=== PATIENT | female | born 1945 | race Hispanic/Latino ===

== ENCOUNTER 2018-06-19 07:43 | Observation (INO) | payer MEDICARE ==
[2018-06-19] MEDS ORDERED: ECOTRIN PO ONE (08:30)
[2018-06-19] MEDS ORDERED: NACL 0.9% 500 ML 500 ML IV SCH (09:00)
[2018-06-19 09:08] LABS: Basophils % (Auto) 0.6 % (0.0-1.8); Eosinophils # (Auto) 0.1 K/mm3 (0.0-0.4); Hematocrit 36.1 % (30.3-42.9); Hemoglobin 11.9 gm/dl (10.1-14.3); Lymphocytes # (Auto) 0.8 K/mm3 (1.2-5.4); Lymphocytes % (Auto) 15.5 % (13.4-35.0); Mean Corpuscular HGB Conc 33 % (30-34); Mean Corpuscular Volume 81 fl (79-97); Monocytes # (Auto) 0.4 K/mm3 (0.0-0.8); Monocytes % (Auto) 7.9 % (0.0-7.3); Platelet Count 265 K/mm3 (140-440); Red Blood Count 4.45 M/mm3 (3.65-5.03); Red Cell Distribution Width 15.4 % (13.2-15.2)
[2018-06-19 09:20] LABS: Partial Thromboplastin Time 28.3 Sec. (24.2-36.6)
[2018-06-19 09:41] LABS: BUN/Creatinine Ratio 17; Blood Urea Nitrogen 12 mg/dL (7-17); Calcium 9.1 mg/dL (8.4-10.2); Hemolysis Index 19
[2018-06-19] MEDS ORDERED: HEPARIN/NS 5000 UNIT/500ML(CATH LAB) 1,000 ML IR ONE (10:20)
[2018-06-19] MEDS ORDERED: XYLOCAINE 2% INFILTRATI ONE (10:20)
[2018-06-19] MEDS ORDERED: CALAN ONE (10:20)
[2018-06-19] MEDS ORDERED: SUBLIMAZE ONE (10:21)
[2018-06-19] MEDS ORDERED: NITROGLYCERIN SYRINGE 3 ML ONE (10:21)
[2018-06-19 10:26] LABS: INR 0.9 (0.87-1.13)
[2018-06-19] MEDS ORDERED: ZOFRAN ONE (10:31)
[2018-06-19] MEDS: VERSED ONE ×2 (10:57→11:10)
[2018-06-19] MEDS ORDERED: BENADRYL IV ONE (11:00)
[2018-06-19] MEDS ORDERED: SOLU-Medrol IV ONE (11:00)
[2018-06-19] MEDS: HEPARIN 10,000 UNITS/10 ML ONE ×3 (11:01→11:30)
[2018-06-19] MEDS ORDERED: NACL 0.9% 500 ML 500 ML ONE ×2 (11:15)
[2018-06-19] MEDS ORDERED: ALUM-MAG HYDROX-SIMETH 200-200-20MG/5ML ONE (11:36)
[2018-06-19] MEDS ORDERED: EFFIENT PO ONE (11:36)
--- NOTE | 2018-06-19 12:56 | Cardiac Catherization Report ---
CARDIAC CATHETERIZATION REFERRING PHYSICIAN: Elbert Farrell MD INDICATION FOR PROCEDURE: The patient with dyspnea on exertion, likely anginal equivalent, abnormal stress test with apical ischemia on beta blockade, referred for left heart catheterization. Risks, benefits, and potential alternatives explained at length prior to obtaining informed consent. PROCEDURE IN DETAIL: The patient was brought to catheterization lab in a postabsorptive state, prepped and draped in sterile fashion. Rey's test in right hand was normal. A 2 mL of 2% lidocaine used to anesthetize the right wrist. A standard 6-Chinese hydrophilic sheath used to cannulate the right common femoral artery via modified Seldinger technique. All exchanges performed to exchange a J-tip guidewire. JL3.5 catheter used to engage the left main. No dampening or ventricularization. Angiography performed in all projections. JR4 catheter was used to cross the aortic valve under fluoroscopic guidance. Left ventriculography performed 30 HAHN and 30 ARABIC projections via hand injections, catheter flushed. Manual pullback performed with continuous pressure monitoring. Catheter used to engage the right coronary. No dampening or ventricularization. Cineangiography performed in all projections. DATA: Aortic pressure is 140/50, LV pressure is 140. LVEP of 6 mmHg. Left ventriculography reveals normal systolic performance with estimated ejection fraction of 55-60%. No evidence of aortic stenosis. CORONARY ANATOMY: Right dominant system. Right coronary is a moderate sized vessel, courses AV groove, distally bifurcates in the posterior and posterolateral branches. No discrete stenosis noted, 25% mid right coronary stenosis, nonobstructive. Left main without significant disease, bifurcates left anterior descending and left circumflex. Left circumflex is a moderate size vessel, courses AV groove. No significant disease. LAD is a moderate sized vessel, courses anterior intergroove, wraps around the apex. There is a calcific complex lesion in the high mid LAD with a maximal narrowing of approximately 80%. This does correlate with abnormal stress test. At this point, we turned our attention to further interrogate this vessel. Additional heparin given. Abnormal ACT is confirmed. EBU 3.5 guide used. Pressure wire placed into the distal LAD. IFR is 0.84, which deems this lesion physiologically significant. Also, correlates with nuclear stress test. At this point, we direct stented with Dylan 3.0 x 22 drug-eluting stent with 12 KOBI for 30 seconds. Excellent final angiographic result. Next, intravascular ultrasound was performed and multiple passes were made, which revealed a well-opposed and well expanded stent. No complications. Final angiogram reveals excellent result, RALF 3 flow. No chest pain. The patient is clinically stable. I directly supervised the administration of moderate sedation from 10:30-11:15 a.m. CONCLUSIONS: 1. Severe single vessel coronary artery disease with 80-90% high mid LAD stenosis. Likely culprit, positive FFR, deems this lesion physiologically significant. Successful IVUS guided PCI placement of drug-eluting stent. 2. [place] 3.0 x 22 with excellent final angiographic and ultrasonographic results. No other significant obstructive disease identified. 3. Preserved left ventricular systolic performance, estimated ejection fraction of 55-60%. 4. No evidence of aortic stenosis. The patient is clinically stable, chest pain free. Aspirin, Effient, statin therapy. Results of procedure explained to the patient and her sister, standard radial care. JOB# [id number] SBM/NTS
--- NOTE | 2018-06-19 15:06 | Short Stay Summary ---
<ARVIN RAMIREZ - Last Filed: 06/19/18 15:07> Short Stay Documentation Date of service: 06/19/18 - History H&P: obtained from office - Allergies and Medications Current Medications: Allergies azithromycin [From Zithromax] Allergy (Unverified 06/19/18 07:45) Hives Proton Pump Inhibitors Allergy (Unverified 06/19/18 07:46) Nausea shellfish derived Allergy (Unverified 06/19/18 07:46) HOSPITALIZED Home Medications Medication Instructions Recorded Confirmed Last Taken Type Metoprolol [Lopressor TAB] 12.5 mg PO BID 06/19/18 06/19/18 Unknown History Active Medications Sodium Chloride (Nacl 0.9% 500 Ml) 500 mls @ 50 mls/hr IV DIRECT SUDHA Stop: 06/19/18 18:59 Last Admin: 06/19/18 09:29 Dose: 50 mls/hr Documented by: Prasugrel (Effient) 10 mg PO QDAY SUDHA - Brief post op/procedure progress note Date of procedure: 06/19/18 Pre-op diagnosis: abnormal stress test Post-op diagnosis: other (CAD) Procedure: [facility] with PCI - see dictated cath report Anesthesia: local Estimated blood loss: none Condition: stable - Disposition Condition at discharge: Good Disposition: [id number] TO HOME OR SELFCARE - Discharge Diagnoses (1) CAD (coronary artery disease) Status: Chronic (2) Stented coronary artery Status: Chronic Short Stay Discharge Plan Activity: advance as tolerated Diet: low fat, low cholesterol, low salt Wound: open to air, keep clean and dry, per your surgeon's advice Follow up with: INNA CARTAGENA MD [Primary Care Provider] - 7 Days RAYSHAWN COOPER MD [Staff Physician] - 7 Days ([place] office, 07/02/2018 @ 3:15PM) Prescriptions: AtorvaSTATin [Lipitor] 40 mg PO QHS #30 tablet Prasugrel [Effient] 10 mg PO QDAY #30 tablet <GHAZAL URIBE - Last Filed: 06/20/18 11:09> Short Stay Documentation - Allergies and Medications Current Medications: Allergies azithromycin [From Zithromax] Allergy (Unverified 06/19/18 07:45) Hives Proton Pump Inhibitors Allergy (Unverified 06/19/18 07:46) Nausea shellfish derived Allergy (Unverified 06/19/18 07:46) HOSPITALIZED Home Medications Medication Instructions Recorded Confirmed Last Taken Type Aspirin [Aspirin TAB] 325 mg PO QDAY tablet 06/19/18 Unknown Rx AtorvaSTATin [Lipitor] 40 mg PO QHS #30 tablet 06/19/18 Unknown Rx Metoprolol [Lopressor TAB] 12.5 mg PO BID 06/19/18 06/19/18 Unknown History Prasugrel [Effient] 10 mg PO QDAY #30 tablet 06/19/18 Unknown Rx Active Medications Al Hydrox/Mg Hydrox/Simethicone (Alum-Mag Hydrox-Simeth [phone]/5ml) 30 ml PO Q4H PRN PRN Reason: Indigestion Last Admin: 06/20/18 01:26 Dose: 30 ml Documented by: Aspirin (Aspirin) 325 mg PO QDAY [facility] Last Admin: 06/20/18 09:20 Dose: 325 mg Documented by: Atorvastatin Calcium (Lipitor) 40 mg PO QHS [facility] Last Admin: 06/19/18 21:03 Dose: 40 mg Documented by: Metoprolol Tartrate (Lopressor) 12.5 mg PO BID [facility] Last Admin: 06/20/18 09:20 Dose: 12.5 mg Documented by: Prasugrel (Effient) 10 mg PO QDAY [facility] Last Admin: 06/20/18 09:20 Dose: 10 mg Documented by:
[2018-06-19] MEDS ORDERED: ALUM-MAG HYDROX-SIMETH 200-200-20MG/5ML PO PRN (20:45)
[2018-06-19] MEDS: LOPRESSOR PO SCH (21:03)
[2018-06-20] MEDS ORDERED: ALUM-MAG HYDROX-SIMETH 200-200-20MG/5ML PO PRN (01:11)
[2018-06-20 08:29] LABS: Basophils % (Auto) 0.2 % (0.0-1.8); Eosinophils % (Auto) 0.1 % (0.0-4.3); Hematocrit 34.8 % (30.3-42.9); Hemoglobin 11.4 gm/dl (10.1-14.3); Lymphocytes # (Auto) 1.2 K/mm3 (1.2-5.4); Lymphocytes % (Auto) 12.9 % (13.4-35.0); Mean Corpuscular HGB Conc 33 % (30-34); Mean Corpuscular Volume 82 fl (79-97); Monocytes # (Auto) 0.8 K/mm3 (0.0-0.8); Monocytes % (Auto) 8.5 % (0.0-7.3); Platelet Count 284 K/mm3 (140-440); Red Blood Count 4.26 M/mm3 (3.65-5.03); Red Cell Distribution Width 15.4 % (13.2-15.2)
[2018-06-20 08:41] LABS: BUN/Creatinine Ratio 17; Blood Urea Nitrogen 10 mg/dL (7-17); Calcium 8.7 mg/dL (8.4-10.2); Creatine Kinase MB 2.1 ng/mL (0.0-4.0); Hemolysis Index 2
[2018-06-20 09:04] VITALS: BP 137/52
[2018-06-20] MEDS: LOPRESSOR PO SCH (09:20)
[2018-06-20] MEDS ORDERED: EFFIENT PO SCH (10:00)
[2018-06-20] MEDS ORDERED: ASPIRIN PO SCH (10:00)
--- NOTE | 2018-06-20 10:17 | XRay Report ---
PROCEDURE: XR CHEST 1V AP TECHNIQUE: Chest radiograph single view. HISTORY: post pci COMPARISONS: None . FINDINGS: Heart: Normal. Mediastinum/Vessels: Normal. Lungs/Pleural space: Normal. Bony thorax: No acute osseous abnormality. Life support devices: None. IMPRESSION: No acute cardiopulmonary abnormality. This document is electronically signed by Sami Linares MD., June 20 2018 10:15:41 AM ET
--- NOTE | 2018-06-20 11:19 | Progress Note ---
Assessment and Plan s/p PCI of LAD,no cimplaints,labs (cbc,BMP,cardiac enzymes are unremarkable). Patient will take ASA.prasugrel,atorvastatin,f/u with in 2 weeks. patient is agreeable with plan. Subjective Date of service: 06/20/18 Interval history: No chest pain,comfortable. Objective Vital Signs Temp Pulse Resp BP Pulse Ox 06/20/18 09:20 72 137/52 06/20/18 09:02 70 137/52 96 06/20/18 06:00 71 06/20/18 04:21 98.0 F 65 18 132/61 95 06/20/18 00:04 98 06/19/18 23:54 98.0 F 66 18 136/74 93 06/19/18 22:22 93 H 06/19/18 21:03 89 138/61 06/19/18 15:52 98.3 F 77 16 145/66 06/19/18 14:22 85 06/19/18 14:00 85 20 125/70 96 06/19/18 13:30 84 24 139/61 95 06/19/18 13:00 79 21 150/72 94 06/19/18 12:30 74 18 140/71 90 06/19/18 12:15 68 18 139/72 90 06/19/18 12:00 70 14 139/63 95 06/19/18 11:45 97.6 F 77 14 149/77 95 - Physical Examination HEENT: Positive: PERRL Neck: Positive: trachea midline Cardiac: Positive: Regular Rhythm Lungs: Positive: clear to auscultation Neuro: Positive: Grossly Intact Abdomen: Positive: Unremarkable Skin: Positive: Clear Incision: Cardiac Cath Site (right radial cath site is unremarkable.) Extremities: Present: normal - Labs and Meds Cardiac Enzymes 06/20/18 Range/Units 07:20 CK-MB (CK-2) 2.1 (0.0-4.0) ng/mL CBC 06/20/18 Range/Units 07:20 WBC 8.9 (4.5-11.0) K/mm3 RBC 4.26 (3.65-5.03) M/mm3 Hgb 11.4 (10.1-14.3) gm/dl Hct 34.8 (30.3-42.9) % Plt Count 284 (140-440) K/mm3 Lymph # 1.2 (1.2-5.4) K/mm3 [place] # 0.8 (0.0-0.8) K/mm3 Eos # 0.0 (0.0-0.4) K/mm3 Baso # 0.0 (0.0-0.1) K/mm3 Comprehensive Metabolic Panel 06/20/18 Range/Units 07:20 Sodium 140 (137-145) mmol/L Potassium 3.9 (3.6-5.0) mmol/L Chloride 107.3 H (98-107) mmol/L Carbon Dioxide 22 (22-30) mmol/L BUN 10 (7-17) mg/dL Creatinine 0.6 L (0.7-1.2) mg/dL Glucose 97 (65-100) mg/dL Calcium 8.7 (8.4-10.2) mg/dL
== END 2018-06-20 15:25 | disposition home or self-care (01) ==
LOC: CATHLABREC 07:43 → 4A 11:43
PROVIDERS: ADMIT Internal Medicine; ATTEND Internal Medicine
DX: I25.10 Atherosclerotic heart disease of native coronary artery without angina pectoris (principal); I49.1 Atrial premature depolarization; R00.2 Palpitations; I49.3 Ventricular premature depolarization; R06.09 Other forms of dyspnea; R94.39 Abnormal result of other cardiovascular function study; Z88.8 Allergy status to other drugs, medicaments and biological substances; Z95.5 Presence of coronary angioplasty implant and graft; Z79.899 Other long term (current) drug therapy; Z79.82 Long term (current) use of aspirin; Z90.710 Acquired absence of both cervix and uterus
CPT/HCPCS: 36415; 71045; 80048; 82550; 82553; 82962; 84484; 85025; 85347; 85610; 85730; 92978; 93005; 93010; 93458; 93571; 96374; 96375; A9270; C1753; C1769; C1874; C1887; C1894; C9600; G0378; J0153; J1200; J1644; J2250; J2405; J2930; J3010; J7040; 92928; Q9967